=== PATIENT | male | born 1970 | race Caucasian/White ===

== ENCOUNTER 2016-06-13 14:13 | Emergency (ER) | payer MEDICAID ==
[~2016-06-13] VITALS: Ht 167.6 cm; Wt 82.6 kg
[~2016-06-13 14:13] MED LIST: CITA20TA9 PO; DOXE100C PO
[2016-06-13] MEDS ORDERED: LIDOCAINE 1%, 20ML ONE (14:57)
[2016-06-13] MEDS ORDERED: CEFAZOLIN 1,000 MG ONE (14:57)
[2016-06-13] MEDS ORDERED: LIDOCAINE 1%, 20ML INFIL ONE (15:00)
[2016-06-13] MEDS ORDERED: CEFAZOLIN 1,000 MG IM ONE (15:00)
[2016-06-13 17:10] VITALS: BP 148/97
== END 2016-06-13 17:12 | disposition home or self-care (01) ==
LOC: ED 16:08
DX: L03.011 Cellulitis of right finger (principal); Z88.0 Allergy status to penicillin; Z90.89 Acquired absence of other organs; F17.200 Nicotine dependence, unspecified, uncomplicated
CPT/HCPCS: 26010; 73140; 96372; 99284; J0690

== ENCOUNTER 2016-06-24 19:59 | Inpatient (IN) | payer MEDICAID ==
[~2016-06-24] VITALS: Ht 167.6 cm; Wt 82.2 kg
[2016-06-24] MEDS ORDERED: IBUPROFEN 200 MG TABLET ONE (20:30)
[2016-06-24] MEDS ORDERED: IBUPROFEN 200 MG TABLET PO ONE (20:30)
[2016-06-24] MEDS ORDERED: CLINDAMYCIN 150 MG/ML, 6ML IM ONE (20:30)
[2016-06-24] MEDS ORDERED: OXYcodone/APAP 5/325MG TABLET ONE (20:30)
[2016-06-24] MEDS ORDERED: OXYcodone/APAP 5/325MG TABLET PO ONE (20:30)
[2016-06-24] MEDS ORDERED: SODIUM CHLORIDE 0.9% 1,000ML IVBOLUS ONE (21:30)
[2016-06-24] MEDS ORDERED: CLINDAMYCIN PMX 600MG/50ML 50 ML IVPB ONE (21:30)
[2016-06-24] MEDS ORDERED: SODIUM CHLORIDE FLUSH 10ML SYR IVF ONE (21:30)
[2016-06-24 22:09] LABS: HEMOGLOBIN 14.4 g/dL (13.7-18.0)
[2016-06-24 22:21] LABS: BLOOD UREA NITROGEN 10 mg/dL (7-18)
[2016-06-24 22:50] VITALS: BP 138/82
[2016-06-25] MEDS ORDERED: TRAZODONE 50MG TABLET PO PRN
[2016-06-25] MEDS ORDERED: DOCUSATE 100 MG CAPSULE PO PRN
[2016-06-25] MEDS: CLINDAMYCIN PMX 600MG/50ML 50 ML IV SCH ×4 (02:17→20:40)
[2016-06-25] MEDS ORDERED: CLINDAMYCIN PMX 600MG/50ML 50 ML IVPB ONE (02:30)
[2016-06-25 05:05] VITALS: BP 109/54
[2016-06-25] MEDS ORDERED: CLINDAMYCIN PMX 600MG/50ML 50 ML IV SCH (08:30)
[2016-06-25 08:49] VITALS: BP 116/76
[2016-06-25 15:34] VITALS: BP 125/70
[2016-06-25 19:12] VITALS: BP 129/88
[2016-06-26 01:24] VITALS: BP 132/78
[2016-06-26] MEDS: CLINDAMYCIN PMX 600MG/50ML 50 ML IV SCH ×4 (02:37→20:24)
[2016-06-26 05:40] LABS: HEMOGLOBIN 13.9 g/dL (13.7-18.0)
[2016-06-26 06:01] LABS: BLOOD UREA NITROGEN 16 mg/dL (7-18)
[2016-06-26 07:30] VITALS: BP 123/68
[2016-06-26 13:40] VITALS: BP 146/72
[2016-06-26 19:11] VITALS: BP 144/64
[2016-06-27 02:08] VITALS: BP 120/75
[2016-06-27] MEDS: CLINDAMYCIN PMX 600MG/50ML 50 ML IV SCH ×4 (02:55→22:27)
[2016-06-27 05:54] LABS: ASPARTATE AMINO TRANSFERASE 20 U/L (15-37); BLOOD UREA NITROGEN 18 mg/dL (7-18)
[2016-06-27 08:15] VITALS: BP 121/79
[2016-06-27 13:45] VITALS: BP 123/74
[2016-06-27] MEDS ORDERED: GADOBUTROL 10 MMOL/10 ML PFS ONE (17:54)
[2016-06-27 19:38] VITALS: BP 114/74
[2016-06-28 02:34] VITALS: BP 107/71
[2016-06-28] MEDS: CLINDAMYCIN PMX 600MG/50ML 50 ML IV SCH ×3 (04:24→17:10)
[2016-06-28] MEDS ORDERED: ENOXAPARIN 40 MG/0.4 ML SQ SCH (07:30)
[2016-06-28 07:55] VITALS: BP 109/74
[2016-06-28 12:40] VITALS: BP 134/80
[2016-06-28] MEDS ORDERED: [UNRECOGNIZED DRUG - CODE] IV (17:53)
[2016-06-28] MEDS ORDERED: TRAZ50TA18 PO (17:55)
== END 2016-06-28 18:53 | DRG 541 ==
LOC: ED 21:53 → EDIP 22:01 → 3NE 22:37
PROVIDERS: ADMIT Internal Medicine; ATTEND Internal Medicine
PROC: 02HV33Z Insertion of Infusion Device into Superior Vena Cava, Percutaneous Approach (ICD-10-PCS; principal; 2016-06-27)
PROC: B5181ZA Fluoroscopy of Superior Vena Cava using Low Osmolar Contrast, Guidance (ICD-10-PCS; 2016-06-27)
PROC: 3E04329 Introduction of Other Anti-infective into Central Vein, Percutaneous Approach (ICD-10-PCS; 2016-06-27)
PROC: B548ZZA Ultrasonography of Superior Vena Cava, Guidance (ICD-10-PCS; 2016-06-27)
DX: M86.141 Other acute osteomyelitis, right hand (principal); F17.210 Nicotine dependence, cigarettes, uncomplicated; L03.011 Cellulitis of right finger; F32.9 Major depressive disorder, single episode, unspecified; I10 Essential (primary) hypertension; D72.829 Elevated white blood cell count, unspecified; Z88.0 Allergy status to penicillin; Z83.3 Family history of diabetes mellitus
CPT/HCPCS: 36415; 36569; 76937; 77001; 80048; 80053; 82040; 83605; 85025; 85651; 86141; 87040; 87070; 87077; 87186; 87205; 96360; 96372; A9585; J1650; C1751; J7030

== ENCOUNTER 2020-01-14 19:50 | Emergency (ER) | payer SELFPAY ==
[~2020-01-14] VITALS: Ht 167.6 cm; Wt 108.0 kg
[~2020-01-14 19:50] MED LIST changes: +TRAZ50TA66 PO; +[UNRECOGNIZED DRUG - CODE] IV
--- NOTE | 2020-01-14 20:12 | NUR ---
PT CAME IN CO OF LEFT FLANK PAIN THAT RADIATES TO HIS LEFT TESTICLE X 2 DAYS. PT ALSO STATES "I HAVE THE URGE TO PEE CONSTANTLY BUT WHEN I GO ONLY A LITTLE COMES OUT". PT PROVIDED UA SAMPLE. RESTING IN [facility]. FAMILY MEMBER BEDSIDE.
[2020-01-14 20:44] LABS: MICROSCOPIC INDICATED
--- NOTE | 2020-01-14 20:45 | NUR ---
BRAIN WAVE TECHNICIAN TO ROOM
[2020-01-14 20:50] LABS: BASOPHILS % (AUTO) 1 % (0-1); EOSINOPHILS % (AUTO) 1 % (1-7); LYMPHOCYTES % (AUTO) 20 % (22-44); MEAN CORPUSCULAR HEMOGLOBIN 31.2 pg (27.5-34.5); MEAN CORPUSCULAR HGB CONC 33.9 g/dL (33.2-36.2); MEAN PLATELET VOLUME 7.2 fL (7.4-10.4); MONOCYTES % (AUTO) 8 % (2-9); NEUTROPHILS % (AUTO) 71 % (42-75); PLATELET COUNT 245 x10^3/uL (130-400); RED CELL DISTRIBUTION WIDTH 14.4 % (9.4-14.8)
[2020-01-14 21:00] LABS: ALANINE AMINOTRANSFERASE 36 U/L (12-78); ANION GAP 6 mmol/L (5-15); CALCIUM 8.8 mg/dL (8.5-10.1); CHLORIDE 110 mmol/L (98-107); CREATININE 0.82 mg/dL (0.7-1.3)
[2020-01-14 21:02] LABS: ALKALINE PHOSPHATASE 71 U/L (45-117); BILIRUBIN,TOTAL 0.8 mg/dL (0.2-1.0); TOTAL PROTEIN 7.3 g/dL (6.4-8.2)
[2020-01-14 21:11] VITALS: BP 153/95
[2020-01-14 21:34] LABS: MD SCAN
--- NOTE | 2020-01-14 21:36 | NUR ---
CALL PLACED TO ULTRASOUND, THEY ARE TO FINISH PROCEDURE THEN WILL COME TRANSPORT PATIENT TO ULTRASOUND
--- NOTE | 2020-01-14 22:30 | NUR ---
patient to us
--- NOTE | 2020-01-14 23:30 | NUR ---
ALL RESULTS BACK, PATIENT UP FOR RECHECK
[2020-01-15] MEDS ORDERED: AZITHROMYCIN 500 MG TABLET PO ONE
[2020-01-15] MEDS ORDERED: CEFTRIAXONE 250 MG IM ONE
[2020-01-15] MEDS ORDERED: LIDOCAINE-MPF 1%, 2ML ONE (00:16)
[2020-01-15] MEDS ORDERED: AZITHROMYCIN 500 MG TABLET ONE (00:16)
[2020-01-15] MEDS ORDERED: CEFTRIAXONE 250 MG ONE (00:16)
--- NOTE | 2020-01-15 00:20 | NUR ---
PATIENT MEDICATED PER EMAR, TOLERATED WELL
--- NOTE | 2020-01-15 00:25 | NUR ---
Patient given discharge instructions and they have confirmed that they understand the instructions. Patient ambulatory with steady gait.
[2020-01-15] MEDS ORDERED: SODIUM CHLORIDE 0.9% 1,000 ML IV ONE (00:30)
[2020-01-15] MEDS ORDERED: SODIUM CHLORIDE FLUSH 10ML SYR IVF PRN (00:30)
== END 2020-01-15 01:02 | disposition home or self-care (01) ==
LOC: ED 20:28
DX: N45.2 Orchitis (principal); N43.3 Hydrocele, unspecified; Z90.89 Acquired absence of other organs
CPT/HCPCS: 36415; 76870; 80053; 81001; 85025; 96372; 99284; J0696

== ENCOUNTER 2020-01-21 16:09 | Emergency (ER) | payer SELFPAY ==
[~2020-01-21] VITALS: Ht 167.6 cm; Wt 107.3 kg
[2020-01-21 16:17] VITALS: BP 163/85
[2020-01-21 17:17] LABS: MICROSCOPIC NOT IND
[2020-01-21 17:43] LABS: BASOPHILS % (AUTO) 1 % (0-1); EOSINOPHILS % (AUTO) 1 % (1-7); LYMPHOCYTES % (AUTO) 22 % (22-44); MEAN CORPUSCULAR HEMOGLOBIN 31.4 pg (27.5-34.5); MEAN CORPUSCULAR HGB CONC 33.6 g/dL (33.2-36.2); MEAN PLATELET VOLUME 7.2 fL (7.4-10.4); MONOCYTES % (AUTO) 6 % (2-9); NEUTROPHILS % (AUTO) 71 % (42-75); PLATELET COUNT 244 x10^3/uL (130-400); RED BLOOD COUNT 4.81 x10^6/uL (4.38-5.82); RED CELL DISTRIBUTION WIDTH 14.9 % (9.4-14.8)
[2020-01-21 17:47] LABS: MD NO
[2020-01-21 17:58] LABS: ALANINE AMINOTRANSFERASE 40 U/L (12-78); ANION GAP 6 mmol/L (5-15); CALCIUM 8.7 mg/dL (8.5-10.1); CHLORIDE 111 mmol/L (98-107); CREATININE 0.97 mg/dL (0.7-1.3)
[2020-01-21 18:00] LABS: ALKALINE PHOSPHATASE 71 U/L (45-117); BILIRUBIN,TOTAL 0.6 mg/dL (0.2-1.0); TOTAL PROTEIN 7.2 g/dL (6.4-8.2)
== END 2020-01-21 19:49 | disposition home or self-care (01) ==
LOC: ED 18:05
DX: N41.0 Acute prostatitis (principal); N45.2 Orchitis; R39.15 Urgency of urination; R10.9 Unspecified abdominal pain; N50.812 Left testicular pain; N50.811 Right testicular pain; Z90.89 Acquired absence of other organs
CPT/HCPCS: 36415; 76770; 80053; 81003; 85025; 99284